=== PATIENT | female | born 1980 | race Caucasian/White ===

== ENCOUNTER 2017-04-14 18:32 | Emergency (ER) | payer OTHER ==
--- NOTE | 2017-04-14 19:59 | UC ---
Throat Pain/Nasal [place]itos HPI - HPI Summary HPI Summary: 36 year old female presents with complains of cough and chest congestion. - History of Current Complaint Stated Complaint: FEVER,SINUS,BACK PAIN Time Seen by Provider: 04/14/17 19:59 Hx Obtained From: Patient Hx Last Menstrual Period: 11/01/14 Onset/Duration: Lasting Days Severity: Moderate Cough: Nonproductive Related History: Seasonal Allergies - Allergies/Home Medications Allergies/Adverse Reactions: Allergies Allergy/AdvReac Type Severity Reaction Status Date / Time Ciprofloxacin AdvReac Nausea Verified 04/14/17 20:07 Home Medications: Home Medications Amoxicillin/Clavulanate TAB* [Augmentin TAB 875*] 875 mg PO BID 04/14/17 [ History Confirmed 04/14/17] Budesonide/Formote 160/4.5(NF) [Symbicort 160/4.5 (NF)] 2 puff INH BID 04/14/17 [History Confirmed 04/14/17] PMH/Surg Hx/FS Hx/Imm Hx Previously Healthy: Yes - Surgical History Surgical History: Yes Surgery Procedure, Year, and Place: C-SECT - Family History Known Family History: Positive: None - Social History Alcohol Use: None Substance Use Type: None Smoking Status (MU): Never Smoked Tobacco Review of Systems Constitutional: Negative Skin: Negative Eyes: Negative ENT: Negative Respiratory: Cough Cardiovascular: Negative Gastrointestinal: Negative Genitourinary: Negative Motor: Negative Neurovascular: Negative Musculoskeletal: Negative Neurological: Negative Psychological: Negative All Other Systems Reviewed And Are Negative: Yes Physical Exam Triage Information Reviewed: Yes Vital Signs Reviewed: Yes Eye Exam: Normal ENT: Positive: Pharyngeal erythema, Nasal congestion, Sinus tenderness Dental Exam: Normal Neck exam: Normal Neck: Positive: 1 Respiratory: Positive: Wheezing Cardiovascular Exam: Normal Abdominal Exam: Normal Musculoskeletal Exam: Normal Neurological Exam: Normal Psychological Exam: Normal Skin Exam: Normal Throat Pain/Nasal Course/Dx - Differential Dx/Diagnosis Provider Diagnoses: sinus congestion. cough Discharge - Discharge Plan Condition: Stable Disposition: HOME Prescriptions: Benzonatate CAP* [Tessalon 100 MG CAP*] 100 mg PO TID #30 cap Guaifenesin-Codeine [Cheratussin AC] 1 teasp PO BEDTIME PRN #120 ml MDD 5 ml PRN Reason: Cough Methylprednisolone [Medrol Dosepak 4 MG*] 4 mg PO .SEE ALE INSTRUCTION #21 tab Patient Education Materials: Asthma (ED), Acute Cough (ED) Referrals: RONALD Ross [Medical Doctor] -
[2017-04-14 20:06] VITALS: BP 124/73
--- NOTE | 2017-04-14 20:39 | RAD ---
INDICATION: Cough COMPARISON: November 25, 2014 TECHNIQUE: PA and lateral dual-energy views were obtained. FINDINGS: Bones/Soft Tissues: There are no acute bony findings. Cardiomediastinal: The cardiomediastinal silhouette is normal. Lungs: There are no infiltrates. Pleura: There are no pleural effusions. Other: None IMPRESSION: NO ACTIVE DISEASE
== END 2017-04-14 21:13 | disposition home or self-care (01) ==
LOC: UCCORT 18:32
DX: R09.81 Nasal congestion (principal); R05 Cough; Z88.1 Allergy status to other antibiotic agents
CPT/HCPCS: 71020; 99212; G0463